=== PATIENT | male | born 1985 | race Two or more races ===

== ENCOUNTER 2016-09-10 11:15 | Emergency (ER) | payer OTHER ==
[2016-09-10 11:23] VITALS: TEMP 97.8
[2016-09-10] MEDS ORDERED: Sodium Chloride 0.9% 1,000 ML IV STA (11:38)
--- NOTE | 2016-09-10 11:42 | ED PDOC ---
Arrival/HPI - General Chief Complaint: Dizziness/Lightheaded Time Seen by Provider: 09/10/16 11:16 Historian: Patient - History of Present Illness Narrative History of Present Illness (Text): 09/10/16 11:40 31 year old male, denies past medical history, presents to the emergency department with dizziness, nausea, and vomiting since this morning. described as room spinning around him. Denies abdominal pain or other complaints. 09/10/16 12:37 Time/Duration: 4-6 hours Symptom Onset: Sudden Symptom Course: Unchanged Associated Symptoms (Text): None Past Medical History - Provider Review Nursing Documentation Reviewed: Yes - Infectious Disease Hx of Infectious Diseases: None - Psychiatric Hx Substance Use: No - Surgical History Other/Comment: gastric sleeve 2015 - Anesthesia Hx Anesthesia: Yes Hx Anesthesia Reactions: No Hx Malignant Hyperthermia: No Family/Social History - Physician Review Nursing Documentation Reviewed: Yes Family/Social History: Unknown Family HX Smoking Status: Light Smoker < 10 Cigarettes Daily Hx Alcohol Use: No Hx Substance Use: No Allergies/Home Meds Allergies/Adverse Reactions: Allergies No Known Allergies Allergy (Verified 09/10/16 11:23) Review of Systems - Physician Review All systems were reviewed & negative as marked: Yes - Review of Systems Respiratory: absent: SOB Cardiovascular: absent: Chest Pain Gastrointestinal: Nausea, Vomiting. absent: Abdominal Pain Neurological: Dizziness Physical Exam Vital Signs Reviewed: Yes Vital Signs Temp Pulse Resp BP Pulse Ox 09/10/16 14:19 79 16 120/70 99 09/10/16 11:33 82 18 130/87 100 09/10/16 11:18 97.8 F 89 19 117/80 99 Temperature: Afebrile Blood Pressure: Normal Pulse: Regular Respiratory Rate: Normal Appearance: Positive for: Well-Appearing, Non-Toxic, Uncomfortable Pain Distress: None Mental Status: Positive for: Alert and Oriented X 3 - Systems Exam Head: Present: Atraumatic, Normocephalic Pupils: Present: PERRL Extroacular Muscles: Present: Other (Horizontal nystagmus) Conjunctiva: Present: Normal Mouth: Present: Moist Mucous Membranes Neck: Present: Normal Range of Motion Respiratory/Chest: Present: Clear to Auscultation, Good Air Exchange. No: Respiratory Distress, Accessory Muscle Use Cardiovascular: Present: Regular Rate and Rhythm, Normal S1, S2. No: Murmurs Abdomen: Present: Normal Bowel Sounds. No: Tenderness, Distention, Peritoneal Signs Back: Present: Normal Inspection Upper Extremity: Present: Normal Inspection. No: Cyanosis, Edema Lower Extremity: Present: Normal Inspection. No: Edema Neurological: Present: GCS=15, CN II-XII Intact, Speech Normal, Motor Func Grossly Intact Skin: Present: Warm, Dry, Normal Color. No: Rashes Psychiatric: Present: Alert, Oriented x 3, Normal Insight, Normal Concentration Medical Decision Making ED Course and Treatment: Impression: 31 year old male, denies past medical history, presents to the emergency department with dizziness, nausea, and vomiting since this morning. Differential Diagnosis included but are not limited to: Vertigo vs other metabolic abnormality Plan: -- Antivert, Zofran -- Labs -- Reassess and disposition Progress Notes: 09/10/16 12:37 pt reassessed. reports nausea improving, but persistent vertigo. ct added 09/10/16 13:06 pt now reports symptoms improving. ct pending. PROCEDURE: CT HEAD WITHOUT CONTRAST. Commissioned Fire Officer : Jimy Alfonso MD Report Date : 09/10/2016 13:55:31 IMPRESSION: Normal CT of the Head. 09/10/16 14:06 pt reassesed. symptoms resolved. states feels well for d/c. return precautiosn advised - Lab Interpretations Lab Results: 09/10/16 11:52 09/10/16 11:52 Lab Results 09/10/16 11:52: Sodium 140, Potassium 4.3, Chloride 105, Carbon Dioxide 28, Anion Gap 11, BUN 13, Creatinine 0.8, Est GFR ( Amer) > 60, Est GFR (Non- Af Amer) > 60, Random Glucose 136 H, Calcium 9.7, Total Bilirubin 0.3, AST 22, ALT 37, Alkaline Phosphatase 53, Total Protein 7.8, Albumin 4.6, Globulin 3.1, Albumin/Globulin Ratio 1.5 09/10/16 11:52: PT 11.0, INR 1.02, APTT 27.5 09/10/16 11:52: WBC 7.7, RBC 4.62, Hgb 14.1, Hct 39.1 L, MCV 84.6, MCH 30.5, MCHC 36.1, RDW 12.0, Plt Count 194, MPV 10.1, Gran % 74.5 H, Lymph % (Auto) 19.0 L, Esmeralda % (Auto) 5.6, Eos % (Auto) 0.8 L, Baso % (Auto) 0.1, Gran # 5.75, Lymph # 1.5, Esmeralda # 0.4, Eos # 0.1, Baso # 0.01 - RAD Interpretation Radiology Orders: 09/10/16 12:37 HEAD W/O CONTRAST [CT] Stat Medical Billing And Coding Specialist: Radiologist - Medication Orders Current Medication Orders: Discontinued Medications Sodium Chloride (Sodium Chloride 0.9%) 1,000 mls @ 999 mls/hr IV .Q1H1M STA Stop: 09/10/16 12:38 Last Admin: 09/10/16 11:55 Dose: 999 mls/hr Meclizine HCl (Antivert) 50 mg PO STAT STA Stop: 09/10/16 11:38 Last Admin: 09/10/16 11:52 Dose: 50 mg Ondansetron HCl (Zofran Inj) 4 mg IVP STAT STA Stop: 09/10/16 11:38 Last Admin: 09/10/16 11:52 Dose: 4 mg - Scribe Statement The provider has reviewed the documentation as recorded by the Luis Cuenca Provider Scribe Attestation: All medical record entries made by the Luis were at my direction and personally dictated by me. I have reviewed the chart and agree that the record accurately reflects my personal performance of the history, physical exam, medical decision making, and the department course for this patient. I have also personally directed, reviewed, and agree with the discharge instructions and disposition. Disposition/Present on Arrival - Present on Arrival Any Indicators Present on Arrival: No History of DVT/PE: No History of Uncontrolled Diabetes: No Urinary Catheter: No History of Decub. Ulcer: No History Surgical Site Infection Following: None - Disposition Have Diagnosis and Disposition been Completed?: Yes Diagnosis: Dizziness, Vertigo Disposition: HOME/ ROUTINE Disposition Time: 14:07 Condition: STABLE Discharge Instructions (ExitCare): Vertigo (ED), Dizziness (ED) Additional Instructions: please follow up with your doctor/clinic and specialists. return to emergency room with worsening symptoms or concerns. Prescriptions: Meclizine [Meclizine*] 25 mg PO Q6 PRN #30 tab PRN Reason: Dizziness Referrals: PCP,NO [Primary Care Provider] - Follow up with primary [facility] [place] [Outside] - Follow up with primary [employer] [Outside] - Follow up with primary Raghavendra Pablo MD [Staff Provider] - Follow up with primary Jason Rosenberg DO [Doctor Osteopathy] - Follow up with primary
[2016-09-10 11:53] LABS: ADD MANUAL DIFF? NO
[2016-09-10 11:59] LABS: BASO # 0.01 K/mm3 (0.0-2.0); BASO % 0.1 % (0.0-3.0); EOS # 0.1 (0.0-0.7); EOS % 0.8 % (1.5-5.0); GRAN # 5.75 (1.4-6.5); GRAN % 74.5 % (50.0-68.0); HEMATOCRIT 39.1 % (42.0-52.0); LYMPH # 1.5 (1.2-3.4); MEAN CELL VOLUME 84.6 fL (80.0-105.0); MEAN CORPUSCULAR HEMOGLOBIN 30.5 pg (25.0-35.0); MEAN CORPUSCULAR HGB CONC 36.1 g/dl (31.0-37.0); MEAN PLATELET VOLUME 10.1 fl (7.0-11.0); MONO # 0.4 (0.1-0.6); MONO % 5.6 % (1.0-6.0); PLATELET COUNT 194 10^3/uL (120.0-450.0); WHITE BLOOD COUNT 7.7 10^3/ul (4.5-11.0)
[2016-09-10 12:06] LABS: INR 1.02 (0.93-1.08); PARTIAL THROMBOPLASTIN TIME 27.5 Seconds (23.7-30.8)
[2016-09-10 12:11] LABS: ALB/GLOB RATIO 1.5 (1.1-1.8); ALKALINE PHOSPHATASE 53 U/L (38-133); ALT/SGPT 37 U/L (7-56); AST/SGOT 22 U/L (15-59); BILIRUBIN,TOTAL 0.3 mg/dL (0.2-1.3); BLOOD UREA NITROGEN 13 mg/dL (7-21); CALCIUM 9.7 mg/dL (8.4-10.5); CARBON DIOXIDE 28 mmol/L (21-33); CHLORIDE 105 mmol/L (98-107); GFR AFRICAN-AMERICAN > 60; GLUCOSE,RANDOM 136 mg/dL (70-110); POTASSIUM 4.3 mmol/L (3.6-5.0); SODIUM 140 mmol/L (132-148); TOTAL PROTEIN 7.8 g/dL (5.8-8.3)
--- NOTE | 2016-09-10 13:57 | CT ---
PROCEDURE: CT HEAD WITHOUT CONTRAST. HISTORY: dizziness/vertigo COMPARISON: None available. TECHNIQUE: Axial computed tomography images were obtained through the head/brain without intravenous contrast. Radiation dose: Total exam DLP = 677 mGy-cm. This CT exam was performed using one or more of the following dose reduction techniques: Automated exposure control, adjustment of the mA and/or kV according to patient size, and/or use of iterative reconstruction technique. FINDINGS: HEMORRHAGE: No intracranial hemorrhage. BRAIN: No mass effect or edema. No atrophy or chronic microvascular ischemic changes. VENTRICLES: Unremarkable. No hydrocephalus. CALVARIUM: Unremarkable. PARANASAL SINUSES: Unremarkable as visualized. No significant inflammatory changes. MASTOID AIR CELLS: Unremarkable as visualized. No inflammatory changes. OTHER FINDINGS: None. IMPRESSION: Normal CT of the Head.
[2016-09-10 14:21] VITALS: BP 120/70; PULSE 79; RESP 16; O2SAT 99
== END 2016-09-10 14:32 | disposition home or self-care (01) ==
LOC: ED 11:15
DX: R42 Dizziness and giddiness (principal)
CPT/HCPCS: 70450; 80053; 85025; 85610; 85730; 96374; 99285; J2405; J7040